=== PATIENT | male | born 1990 | race Caucasian/White ===

== ENCOUNTER 2018-12-05 18:50 | Emergency (ER) | payer MEDICAID ==
[~2018-12-05] VITALS: Ht 170.2 cm; Wt 62.4 kg
[2018-12-05 19:13] VITALS: BP 124/71
--- NOTE | 2018-12-05 23:39 | NUR ---
PATIENT LEFT WITHOUT BEING SEEN BY DR. LOVE. NO FURTHER CARE PROVIDED FOR PATIENT. PT CALLED [phone] ([phone])
== END 2018-12-05 22:00 | disposition left against medical advice (07) ==
LOC: MED 18:50
DX: K08.89 Other specified disorders of teeth and supporting structures (principal); Z53.21 Procedure and treatment not carried out due to patient leaving prior to being seen by health care provider

== ENCOUNTER 2019-03-18 10:35 | Emergency (ER) | payer SELFPAY ==
[~2019-03-18] VITALS: Ht 170.2 cm; Wt 63.5 kg
--- NOTE | 2019-03-18 10:46 | NUR ---
PT W/C ASSISTANCE TO BED 9 AT THIS TIME.
[2019-03-18 10:47] VITALS: BP 135/49
--- NOTE | 2019-03-18 10:55 | NUR ---
PATIENT PRESENTS TO ED WITH C/O LEFT TESTICLE PAIN & SWOLLEN X YESTERDAY. PT STATES . DENIES TRAUMA, DUSURIA OR N/V/D. LUNGS CLEAR BL; HR EVEN AND REGULAR; PT DENIES ANY FEVER, CP, SOB, OR COUGH AT THIS TIME; PATIENT STATES PAIN OF 10/10 AT THIS TIME; PATIENT POSITIONED FOR COMFORT; HOB ELEVATED; BEDRAILS UP X2; BED DOWN. ER MD MADE AWARE OF PT STATUS.
--- NOTE | 2019-03-18 10:57 | NUR ---
Patient being evaluated by DR LOVE at bedside.
[2019-03-18] MEDS ORDERED: IBUPROFEN 800 MG TAB PO ONE (11:00)
--- NOTE | 2019-03-18 11:51 | NUR ---
US AT BEDSIDE
[2019-03-18] MEDS ORDERED: cefTRIAXone 250 MG in LIDOCAINE MPF 1% - 5 mL VIAL 0.9 ML IM ONE (12:30)
[2019-03-18] MEDS ORDERED: AZITHROMYCIN 250 MG TAB PO ONE (12:30)
--- NOTE | 2019-03-18 12:45 | NUR ---
Patient being reevaluated by DR LOVE at bedside.
[2019-03-18 12:58] VITALS: BP 123/61
[2019-03-21 06:13] LABS: CHLAMYDIA TRACHOMATIS AMP DNA Negative (Negative)
== END 2019-03-18 12:58 | disposition home or self-care (01) ==
LOC: MED 10:35
DX: N45.1 Epididymitis (principal); F17.200 Nicotine dependence, unspecified, uncomplicated
CPT/HCPCS: 36415; 76870; 81002; 87491; 96372; 99284; J0696; J2001; Q0092